=== PATIENT | male | born 1975 ===

== ENCOUNTER 2024-09-08 00:53 | Emergency (ER) | payer OTHER ==
[~2024-09-08] VITALS: Ht 167.6 cm; Wt 86.4 kg
[2024-09-08 01:22] VITALS: BP 142/110; PULSE 106; RESP 18; TEMP 97.8; O2SAT 98
== END 2024-09-08 02:11 ==
LOC: EMS 00:59
DX: I10 Essential (primary) hypertension (principal); F32.A Depression, unspecified; Z02.89 Encounter for other administrative examinations; Z76.0 Encounter for issue of repeat prescription
CPT/HCPCS: 93005; 99283